=== PATIENT | female | born 1960 | race Hispanic/Latino ===

== ENCOUNTER → 2019-08-17 | Outpatient (CLI) | payer BC | END | disposition home or self-care (01) | LOC: RAH 09:01 | PROVIDERS: ATTEND Physical Medicine & Rehabilitation | DX: M51.27 Other intervertebral disc displacement, lumbosacral region (principal); M47.816 Spondylosis without myelopathy or radiculopathy, lumbar region | CPT/HCPCS: 72148 ==

== ENCOUNTER → 2019-12-15 | Outpatient (CLI) | payer BC | END | disposition home or self-care (01) | LOC: RAH 10:45 | PROVIDERS: ATTEND Physical Medicine & Rehabilitation | DX: M47.816 Spondylosis without myelopathy or radiculopathy, lumbar region (principal); M41.86 Other forms of scoliosis, lumbar region; M51.36 Other intervertebral disc degeneration, lumbar region; M25.78 Osteophyte, vertebrae; N20.0 Calculus of kidney; M46.96 Unspecified inflammatory spondylopathy, lumbar region | CPT/HCPCS: 72131 ==

== ENCOUNTER → 2020-04-20 | Outpatient (CLI) | payer BC | END | disposition home or self-care (01) | LOC: RAH 08:56 | PROVIDERS: ATTEND Family Medicine | DX: K76.89 Other specified diseases of liver (principal); N13.30 Unspecified hydronephrosis | CPT/HCPCS: 76700; 76856 ==

== ENCOUNTER → 2020-04-27 | Outpatient (CLI) | payer BC | END | disposition home or self-care (01) | LOC: RAH 09:44 | PROVIDERS: ATTEND Urology | DX: N20.0 Calculus of kidney (principal); M47.816 Spondylosis without myelopathy or radiculopathy, lumbar region; M25.78 Osteophyte, vertebrae | CPT/HCPCS: 74018 ==

== ENCOUNTER 2020-05-30 06:17 | Day surgery (SDC) | payer BC ==
[~2020-05-30] VITALS: Ht 152.4 cm; Wt 60.0 kg
[2020-05-30] VITALS (16 sets, daily range): BP systolic 104–130; BP diastolic 66–85
[2020-05-30] MEDS: CEFTRIAXONE SODIUM 1 GM IVP SCH ×2 (06:00→08:20)
[~2020-05-30 06:17] MED LIST: AEC81 PO; ASCO100031 PO; BENEFIBER PO; CALCIUM PO; CRAN500T2 PO; LORA10TA7 PO; MV-M1TAB57 PO; PLAN450C PO; RALO60TA13 PO; RED600CA6 PO; TAMS-1 PO; TURM500C9 PO; VITAMIN D3 PO; [UNRECOGNIZED DRUG - OTHER] PO
[2020-05-30] MEDS ORDERED: LACTATED RINGERS 1000ML 1,000 ML IV ONE (07:24)
[2020-05-30] MEDS ORDERED: IOHEXOL-350 50ML VIAL IV ONE (07:58)
[2020-05-30] MEDS ORDERED: MIDAZOLAM HCL 1 MG/ML 2ML VIAL ONE (08:18)
[2020-05-30] MEDS ORDERED: ONDANSETRON HCL 4 MG/2 ML VIAL ONE (08:18)
[2020-05-30] MEDS ORDERED: SUCCINYLCHOLINE 200MG/10ML SYR ONE (08:18)
[2020-05-30] MEDS ORDERED: LIDOCAINE PF 2% 5ML ABBOJECT ONE (08:18)
[2020-05-30] MEDS ORDERED: DEXAMETHASONE SOD PHOSPHATE 10MG/ML 1ML VIAL ONE (08:18)
[2020-05-30] MEDS ORDERED: PROPOFOL 10 MG/ML 20ML VIAL IV ONE (08:19)
[2020-05-30] MEDS ORDERED: FENTANYL CITRATE PF 50 MCG/1 ML 2ML VIAL ONE (08:19)
[2020-05-30] MEDS ORDERED: ROCURONIUM 10MG/1ML SYR 10 MG/ML ML ONE (08:31)
[2020-05-30] MEDS ORDERED: NEOSTIGMINE 5MG/5ML SYR IV ONE (08:51)
[2020-05-30] MEDS ORDERED: GLYCOPYRROLATE 1 MG/5 ML SYRINGE ONE (08:51)
[2020-05-30] MEDS ORDERED: PHENAZOPYRIDINE HCL 200 MG TABLET ONE (09:22)
--- NOTE | 2020-05-30 10:10 | NUR ---
post op received pt post op. report from kylah galarza rn. pt in no distress. pt has 16 fr miranda catheter draining blood tinge urine and dr dunne aware and instructed pt to stop asa. pt oriented to room and call light. will continue to monitor pt.
--- NOTE | 2020-05-30 10:25 | NUR ---
miranda removed miranda catheter after removal of fluid from balloon. pt tolerated it well. pt has string in place and secured to suprapubic area. pt also given pyridium. will continue to monitor pt.
--- NOTE | 2020-05-30 10:45 | NUR ---
discharge pt and friend given discharge instructions. pt taken out via w/c in no distress. pt was given precriptions and discharge handouts
== END 2020-05-30 10:45 | disposition home or self-care (01) ==
LOC: DAH 06:17
PROVIDERS: ATTEND Urology
DX: N13.2 Hydronephrosis with renal and ureteral calculous obstruction (principal); M81.0 Age-related osteoporosis without current pathological fracture; M19.90 Unspecified osteoarthritis, unspecified site; E78.00 Pure hypercholesterolemia, unspecified; K59.00 Constipation, unspecified; Z11.59 Encounter for screening for other viral diseases; Z79.899 Other long term (current) drug therapy; Z72.89 Other problems related to lifestyle; Z82.3 Family history of stroke; Z82.49 Family history of ischemic heart disease and other diseases of the circulatory system; Z82.69 Family history of other diseases of the musculoskeletal system and connective tissue
CPT/HCPCS: 36415; 52320; 52332; 74420; 82360; A4215; A4221; A4222; A4223; A4358; A4510; A4600; A4657; A4663; A6260; C1758 ×2; C1769; C2617; C9803; J0330; J0696; J1100; J2001; J2250; J2405; J2704; J2710; J3010; J3490; J7030; J7120; Q9967; U0003

== ENCOUNTER → 2023-02-07 | Outpatient (CLI) | payer OTHER ==
[~2023-02-07] MED LIST changes: -AEC81 PO; -CRAN500T2 PO; +CRAN500T4 PO
== END | disposition home or self-care (01) ==
LOC: OIH 09:51
PROVIDERS: ATTEND Internal Medicine
DX: Z13.6 Encounter for screening for cardiovascular disorders (principal)
CPT/HCPCS: 75571

== ENCOUNTER → 2023-08-05 | Outpatient (CLI) | payer BC | END | disposition home or self-care (01) | LOC: RAH 09:01 | PROVIDERS: ATTEND Internal Medicine | DX: M47.12 Other spondylosis with myelopathy, cervical region (principal); M48.02 Spinal stenosis, cervical region | CPT/HCPCS: 72040 ==

== ENCOUNTER → 2024-07-13 | Outpatient (CLI) | payer OTHER | END | disposition home or self-care (01) | LOC: RAH 15:02 | PROVIDERS: ATTEND Internal Medicine | DX: Z13.6 Encounter for screening for cardiovascular disorders (principal) | CPT/HCPCS: 75571 ==